=== PATIENT | male | born 1980 | race Caucasian/White ===

== ENCOUNTER 2023-07-11 23:10 | Emergency (ER) | payer MEDICAID ==
[2023-07-11] MEDS: Proparacaine 0.5% Ophth Soln 15 ML Bottle EYEBOTH STA (23:38)
== END 2023-07-11 23:51 | disposition home or self-care (01) ==
LOC: JP.ED 23:10
DX: T65.891A Toxic effect of other specified substances, accidental (unintentional), initial encounter (principal); T26.52XA Corrosion of left eyelid and periocular area, initial encounter; K21.9 Gastro-esophageal reflux disease without esophagitis; Z87.891 Personal history of nicotine dependence; Z79.899 Other long term (current) drug therapy
CPT/HCPCS: 99283; A9270

== ENCOUNTER 2024-04-16 07:54 | Day surgery (SDC) | payer MEDICAID ==
[~2024-04-16 07:54] MED LIST: Midazolam 1 MG/ML 2 ML SDV ONE; Propofol 200 MG/20 ML SDV ONE; fentaNYL 100 MCG/2 ML SDV ONE
[2024-04-16] MEDS: Lactated Ringers 1,000 ML IV SCH (08:59)
[2024-04-16] MEDS ORDERED: Propofol 200 MG/20 ML SDV ONE (10:17)
== END 2024-04-16 11:50 | disposition home or self-care (01) ==
LOC: JP.SDS 07:54
PROVIDERS: ATTEND Surgery
DX: Z12.11 Encounter for screening for malignant neoplasm of colon (principal); D12.5 Benign neoplasm of sigmoid colon; J45.909 Unspecified asthma, uncomplicated; K21.9 Gastro-esophageal reflux disease without esophagitis; F41.9 Anxiety disorder, unspecified; F32.A Depression, unspecified; Z79.899 Other long term (current) drug therapy
CPT/HCPCS: 00811-QZ; 88305; J2250; J2704; J3010; J7120